=== PATIENT | male | born 1960 | race Caucasian/White ===

== ENCOUNTER → 2020-06-21 09:45 | Outpatient (CLI) | payer OTHER, SELFPAY ==
--- NOTE | ~2020-06-21 | XR_ITS ---
XR cervical spine 4-5V DATE: 06/21/2020 10:44 INDICATION: Neck pain, degenerative change of the neck. TECHNIQUE: Standing AP, open-mouth, lateral, swimmer views COMPARISON: 01/29/2019 cervical spine FINDINGS: There is straightening of the cervical spine. C1 and C2 are normally aligned and the odontoid process is intact. There is approximately 2 mm anterolisthesis at C3-4. There is prominent anterior spurring at C4-5 but preservation of the disc space. Status post interbody spinal fusion at C5-6 and C6-7. No fracture or locked facet, dislocation or prevertebral soft tissue swelling. IMPRESSION: Straightening 2 mm anterolisthesis at C3-4 Status post interbody spinal fusion at C5-6 and C6-7 Reviewed, dictated and finalized at location A.
--- NOTE | ~2020-06-21 | XR_ITS ---
XR lumbar spine 2-3V DATE: 06/21/2020 10:45 INDICATION: Low back pain TECHNIQUE: AP, lateral, coned lateral lumbosacral views COMPARISON: 08/15/2019 MRI lumbar spine 01/29/2019 lumbar spine FINDINGS: Again noted is posterior and interbody spinal fusion at L4-L5 and L5-S1. There is severe degenerative disc disease at L1-2. There is severe degenerative disc disease and mild retrolisthesis at L3-4. No fracture or bone destruction is evident. The included lower thoracic and lumbar pedicles appear in tact. The sacroiliac joints are intact. IMPRESSION: Status post anterior and posterior spinal fusion at L4-S1 Severe degenerative disc disease at L1-2 and L3-4; mild retrolisthesis at L3-4 Little interval change since 01/29/2019 Reviewed, dictated and finalized at location A.
== END ==
DX: M54.5 Low back pain (principal); Z98.1 Arthrodesis status; M51.36 Other intervertebral disc degeneration, lumbar region; M43.16 Spondylolisthesis, lumbar region; M53.82 Other specified dorsopathies, cervical region; M43.12 Spondylolisthesis, cervical region
CPT/HCPCS: 72050; 72100

== ENCOUNTER 2020-09-14 10:42 | Outpatient (CLI) | payer OTHER, SELFPAY ==
--- NOTE | 2020-09-14 11:30 | NEURO_ITS ---
Impression: # Complains of numbness and pain in left hand. # Moderate left Carpal Tunnel Syndrome. # No ulnar neuropathy. # Normal needle/EMG exam. Nerve Conduction Studies Anti Sensory Summary Table Stim Site NR Peak (ms) P-T Amp (?V) Site1 Site2 Delta-P (ms) Dist (cm) Som (m/s) Left Median Anti Sensory (2-3nd Digit) Wrist 4.9 9.0 Wrist 2-3nd Digit 4.9 14.0 29 Wrist 5.4 4.7 Wrist 2-3nd Digit 4.9 14.0 29 Left Radial Anti Sensory (Base 1st Digit) Wrist 1.7 15.6 Wrist Base 1st Digit 1.7 0.0 Left Ulnar Anti Sensory (5th Digit) Wrist 2.5 20.8 Wrist 5th Digit 2.5 14.0 56 Motor Summary Table Stim Site NR Onset (ms) O-P Amp (mV) Site1 Site2 Delta-0 (ms) Dist (cm) Som (m/s) Left Median Motor (Abd Poll Brev) Wrist 5.5 1.9 Elbow Wrist 5.1 29.0 57 Elbow 10.6 1.6 Left Ulnar Motor (Abd Dig Minimi) Wrist 2.7 6.4 A Elbow Wrist 5.0 31.0 62 A Elbow 7.7 5.6 F Wave Studies NR F-Lat (ms) L-R F-Lat (ms) Left Median (Mrkrs) (Abd Poll Brev) 31.78 Left Ulnar (Mrkrs) (Abd Dig Min) 28.71 EMG Side Muscle Nerve Root Ins Act Fibs Amp Dur Recrt Comment Left 1stDorInt Ulnar C8-T1 Nml Nml Nml Nml Nml Left Ext Indicis Radial (Post Int) C7-8 Nml Nml Nml Nml Nml Left Ext Digitorum Radial (Post Int) C7-8 Nml Nml Nml Nml Nml Left BrachioRad Radial C5-6 Nml Nml Nml Nml Nml Left PronatorTeres Median C6-7 Nml Nml Nml Nml Nml Left Abd Poll Brev Median C8-T1 Nml Nml Nml Nml Nml MTDD
== END 2020-09-14 10:43 | disposition home or self-care (01) ==
PROVIDERS: PCP Family Medicine
DX: G56.02 Carpal tunnel syndrome, left upper limb (principal)
CPT/HCPCS: 95886; 95909

== ENCOUNTER 2021-11-01 13:03 | Outpatient (CLI) | payer OTHER, SELFPAY ==
--- NOTE | 2021-11-01 13:28 | ECG_ITS ---
Measurements Intervals [place] Rate: 64 P: 16 MN: 196 QRS: 12 QRSD: 83 T: 36 QT: 374 QTc: 388 Interpretive Statements SINUS RHYTHM NORMAL ECG NO PREVIOUS ECG AVAILABLE FOR COMPARISON Electronically Signed On 11-01-2021 14:24:15 CHANCERY CLERK by Ajith Quiroz M.D.
[2021-11-01 14:21] LABS: Anion Gap 6 mmol/L (8-16); Blood Urea Nitrogen 29 mg/dL (9-20); Calcium 8.7 mg/dL (8.4-10.2); Carbon Dioxide 28 mmol/L (22-30); Chloride 104 mmol/L (98-107); Estimated Glomerular Filt Rate > 60; Glucose 86 mg/dL (65-110); Potassium 4.4 mmol/L (3.4-5.0); Sodium 138 mmol/L (137-145)
== END 2021-11-01 13:04 | disposition home or self-care (01) ==
LOC: ANHLAB 13:08
PROVIDERS: PCP Family Medicine; Visit Provider Physician Assistant Medical
DX: M25.561 Pain in right knee (principal); I10 Essential (primary) hypertension
CPT/HCPCS: 36415; 80048; 84443; 93005

== ENCOUNTER → 2021-11-23 12:22 | Outpatient (CLI) | payer OTHER, SELFPAY ==
--- NOTE | ~2021-11-23 | MR_ITS ---
EXAMINATION: MR orbits face neck wo/w con EXAM DATE: 11/23/2021 13:14 INDICATION: Choroidal folds TECHNIQUE: Magnetic resonance imaging (MRI) of the brain/orbits stem obtained without contrast. Whole brain Sagittal T1, axial diffusion, gradient echo (T2*), T1, T2, FLAIR sequences obtained. Dedicated orbital sequences obtained with smaller field of view, including axial T1, axial T2 fat saturation, coronal T1, coronal T2 fat saturation Patient was then injected with 20 cc intravenous Multihance con trast. Old brain Axial and coronal postcontrast T1 weighted sequences obtained. Dedicated orbital axi al and coronal T1 fat saturation postcontrast sequences. FINDINGS: Incidental incompletely imaged mass in the left parotid superficial lobe measuring 1.2 cm x 1.6. Could be pleomorphic adenoma, parotid malignancy or less likely intraparotid lymph node. Recomm end ENT consult for further management, histologic correlation. The globes, extraocular muscles, optic nerves, lacrimal glands are unremarkable. Retrobulbar fat is c lear. Left-sided cataract surgery. There are no areas of restricted diffusion to suggest acute infarc tion. There is no acute hemorrhage seen on the T2*, a hemosiderin sensitive sequence. No intraparen chymal brain mass. The ventricles are normal in size. There are no extra-axial collections. Flow vo ids are seen in the cerebral arteries on the T2-weighted sequences consistent with their expected pat ency. Soft tissue is unremarkable. IMPRESSION: 1. Incidental left parotid mass; ENT consult, histologic correlation. 2. Unremarkable orbits. Reviewed, dictated and finalized at location B.
== END ==
PROVIDERS: PCP Family Medicine
DX: H31.8 Other specified disorders of choroid (principal); D37.030 Neoplasm of uncertain behavior of the parotid salivary glands
CPT/HCPCS: 70543; A9577

== ENCOUNTER 2021-12-14 12:48 | Outpatient (CLI) | payer OTHER, SELFPAY ==
--- NOTE | ~2021-12-14 | XR_ITS ---
EXAMINATION: XR chest 2V DATE: 12/14/2021 13:05 INDICATION: Dyspnea. Wheezing. TECHNIQUE: Frontal and lateral views of the chest were obtained. COMPARISON: Chest 2 views 01/29/2019 FINDINGS: The chest demonstrates clear lungs without pneumonia, pleural effusion, or pneumothorax. Th e heart size is normal. There are changes of anterior fusion procedure in cervical spine. IMPRESSION: 1. No acute cardiopulmonary disease. Reviewed, dictated and finalized at location B.
== END 2021-12-14 12:49 | disposition home or self-care (01) ==
LOC: ANHIMG 12:51
PROVIDERS: PCP Family Medicine; Visit Provider Family Medicine
DX: R06.00 Dyspnea, unspecified (principal)
CPT/HCPCS: 71046

== ENCOUNTER 2022-01-03 11:09 | Outpatient (CLI) | payer OTHER, SELFPAY ==
--- NOTE | ~2022-01-03 | US_ITS ---
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 COMPARISON: MRI dated 11/23/2021 FINDINGS: 2.0 x 1.0 x 1.2 cm solid hypoechoic mass within the posterior left parotid gland which corresponds in size and location to the enhancing lesion identified on prior MRI. IMPRESSION: 1. Redemonstration of a 2.0 x 1.0 x 1.2 cm solid left parotid nodule which could be either benign or malignant. The nodule was subsequently biopsied. See separate report for further detail regarding the biopsy and follow-up with pathology results. Reviewed, dictated and finalized at location A. IMPRESSION: 1. Redemonstration of a 2.0 x 1.0 x 1.2 cm solid left parotid nodule which coul d be either benign or malignant. The nodule was subsequently biopsied. See sepa rate report for further detail regarding the biopsy and follow-up with patholog y results.
--- NOTE | ~2022-01-03 | US_ITS ---
EXAMINATION: US FNA w image guidance DATE: 01/03/2022 12:32 INDICATION: Parotid neoplasm of uncertain behavior TECHNIQUE: A time-out was performed to verify the patient's name, date of , and procedure to be performed . The procedure and its benefits and risks were discussed with the patient. Risks specifically discus sed included bleeding and infection. The patient understood the risks and agreed to proceed. The neck was prepped and draped in the usual sterile manner. 3 mL 1% lidocaine was used for local anesthesia . 6 passes were made with a 25G needle into the lesion. Appropriate needle location was documented with continuous sonographic guidance. The specimens were passed to the medical lab technologist in the room. A sterile bandage was applied. There were no immediate complications. FINDINGS: Grayscale ultrasound images demonstrate biopsy needles advanced into the previously noted 1.9 cm hypo echoic left parotid mass of concern. IMPRESSION: 1. Successful ultrasound-guided fine needle aspiration of an indeterminate 1.9 cm left parotid mass. Reviewed, dictated and finalized at location A.
== END 2022-01-03 11:10 | disposition home or self-care (01) ==
PROVIDERS: PCP Family Medicine; Visit Provider Otolaryngology
DX: D37.030 Neoplasm of uncertain behavior of the parotid salivary glands (principal)
CPT/HCPCS: 10005; 76536; 88173; 88305

== ENCOUNTER 2022-01-10 07:10 | Outpatient (CLI) | payer OTHER, SELFPAY ==
--- NOTE | 2022-01-10 07:45 | ECHO_ITS ---
Patient Info Name: Fabio Lund Age: 61 years : 1960 Gender: Male Ht: 68 in Wt: 250 lbs BSA: 2.38 m2 HR: 63 bpm BP: 161 / 115 mmHg Technical Quality: Fair Exam Date: 01/10/2022 8:08 AM Exam Location: [facility] Patient Status: Outpatient Admit Date: 01/10/2022 Staff Ordering Physician: Pool Young MD Brush Sander: Misa Bolanos RDCS Attending Provider: Pool Young MD Referring Physician: Hector SANCHEZ; Exam Type: CA echo doppler color flow Study Info Indications R06.00 - Dyspnea, unspecified Complete two-dimensional, color flow and Doppler transthoracic echocardiogram is performed. Summary 1. Complete two-dimensional, color flow and Doppler transthoracic echocardiogram is performed. 2. Left ventricular chamber dimension is normal. 3. Left ventricular systolic function is normal, estimated at 60-65%. 4. There is mildly increased left ventricular wall thickness. 5. The left ventricular diastolic function is grade I diastolic dysfunction. 6. E/e' 9 is minimally elevated. 7. Global longitudinal strain is abnormal at -15.7%. 8. There is mild aortic valve sclerosis. 9. No pulmonary hypertension, estimated pulmonary arterial systolic pressure is 19 mmHg. Left Ventricle E/e' 9 is minimally elevated. Global longitudinal strain is abnormal at -15.7%. Left ventricular chamber dimension is normal. Left ventricular systolic function is normal, estimated at 60-65%. There is mildly increased left ventricular wall thickness. The left ventricular diastolic function is grade I diastolic dysfunction. Right Ventricle Right ventricular chamber dimension is normal. Right ventricular systolic function is normal. Left Atria Left atrial chamber dimension is normal. Right Atria Right atrial chamber dimension is normal. Aortic Valve The aortic valve is trileaflet. There is mild aortic valve sclerosis. There is no aortic valve stenosis. There is no aortic valve regurgitation. Pulmonic Valve There is no pulmonic regurgitation. Mitral Valve There is no mitral valve stenosis. There is no mitral valve regurgitation. Tricuspid Valve There is no tricuspid valve regurgitation. No pulmonary hypertension, estimated pulmonary arterial systolic pressure is 19 mmHg. Pericardium/Pleural There is no pericardial effusion. Inferior Vena Cava Normal inferior vena cava with >50% collapse upon inspiration consistent with normal right atrial pressure, 5 mmHg. Aorta The aortic root size at the sinus of Valsalva is normal. Left Ventricular Outflow Tract Name Value Normal LVOT 2D LVOT Diameter 2.0 cm LVOT Doppler LVOT Peak Gradient 6 mmHg LVOT Mean Gradient 4 mmHg LVOT VTI 28 cm LVOT VTI/AV VTI Ratio 1.1 LVOT Stroke Volume 85 ml LVOT CO 5.4 l/min LVOT CI 2.3 l/min/m2 Pulmonic Valve Na
--- NOTE | 2022-01-10 07:46 | EST_ITS ---
Patient Info Name: Fabio Lund Age: 61 years : 1960 Gender: Male Ht: 68 in Wt: 250 lbs BSA: 2.38 m2 HR: 65 bpm BP: 145 / 108 mmHg Heart Rhythm: Sinus Rhythm Exam Date: 01/10/2022 2:44 PM Patient Status: Outpatient Admit Date: 01/10/2022 Staff Ordering Physician: Pool Young MD Attending Provider: Pool Young MD Exercise Technologist: Bonny Ty CT Exercise Physician: Bay Herring DO Exam Type: CA stress test treadmill Study Info Indications I10 - Essential (primary) hypertension R06.00 - Dyspnea, unspecified A treadmill exercise stress test was performed. Summary 1. 1. Inconclusive Jason exercise stress test for ischemic ST changes by ECG criteria as he only achieved 58% MPHR for age group at 94 bpm and limited by dyspnea and leg pain. He did take Metoprolol the morning of the test. 2. 2. Reduced functional capacity, achieving 6 METs of workload. 3. 3. Baseline hypertension with hypertensive response to exercise. 4. 4. No imaging with stress testing. 5. 5. Patient informed of the above results. Rest HR: 65 bpm Peak HR: 94 bpm Rest Sys BP: 145 mmHg Peak Sys BP: 220 mmHg Max Pred HR: 161 bpm % Max Pred HR: 58 % Target HR: 137 bpm Max RPP: 20,680 bpm*mmHg Termination Reason: Dyspnea Cardiac Symptoms: Shortness of breath, Leg pain Total Time: 4 min : 25 sec Rest Arevalo BP: 108 mmHg Peak Arevalo BP: 113 mmHg Resting ECG Sinus rhythm. Stress ECG No ST changes. Arrhythmias None. Report Signatures
--- NOTE | 2022-01-10 08:01 | ECG_ITS ---
Measurements Intervals [place] Rate: 62 P: 30 OR: 199 QRS: 44 QRSD: 86 T: 38 QT: 390 QTc: 397 Interpretive Statements SINUS RHYTHM DELAYED PRECORDIAL R/S TRANSITION BASELINE ARTIFACT- I, II, III, AVL, AVF BORDERLINE ECG Electronically Signed On 01-10-2022 9:25:11 CDT by Bay Herring D.O.
--- NOTE | 2022-01-11 11:26 | WPDPFTINT ---
PFT Procedure Performed PFT Procedure Performed Spirometry with Pre/Post Bronchodilator Plethysmography (Lung Vol) Diffusing Cap (DLCO) Flow Vol Loop PFT Interpretation Lung volumes were measured with the body plethysmography method. The diminished ERV is related to obesity. The remaining lung volumes are unremarkable. Spirometry showed normal expiratory flow rates and a normal FEV1 to FVC ratio 78%. Following administration of a bronchodilator, there was no significant change in the expiratory flow rates. Lung diffusion capacity is within the normal range at 107% predicted. The flow volume loop is unremarkable. Impression: Spirometry, lung volumes, and lung diffusion capacity all within the normal range.
== END 2022-01-10 07:11 | disposition home or self-care (01) ==
LOC: ANHCARD 07:11
PROVIDERS: PCP Family Medicine; Visit Provider Family Medicine
DX: R06.00 Dyspnea, unspecified (principal); I10 Essential (primary) hypertension; E78.2 Mixed hyperlipidemia; I70.0 Atherosclerosis of aorta
CPT/HCPCS: 93005; 93017; 93306; 94060; 94726; 94729

== ENCOUNTER 2022-01-31 08:04 | Outpatient (CLI) | payer OTHER, SELFPAY ==
--- NOTE | ~2022-01-31 | US_ITS ---
US arterial ankle brachial ind INDICATION: Right leg pain TECHNIQUE: Segmental pressures and plethysmographic and Doppler waveforms of the brachial and lower e xtremity arteries were obtained. COMPARISON: None. FINDINGS: Right and left brachial artery pressures of 169 mm Hg and 166 mm Hg, respectively, are concordant (no rmal difference <= 30 mmHg). The right ankle-brachial index (CHIP) is 1.02 (normal >= 0.9-1.0). The right great toe-brachial index (TBI) is 0.63 (normal >= 0.60). The left CHIP is 1.05. The left TBI is 0.42. IMPRESSION: 1. Left toe brachial index below normal measuring 0.42, consistent with mild peripheral arterial dise ase. 2: Normal right ankle and toe brachial indices. Reviewed, dictated and finalized at location B. IMPRESSION: 1. Left toe brachial index below normal measuring 0.42, consistent with mild pe ripheral arterial disease. 2: Normal right ankle and toe brachial indices.
== END 2022-01-31 08:05 | disposition home or self-care (01) ==
PROVIDERS: PCP Family Medicine; Visit Provider Family Medicine
DX: M79.604 Pain in right leg (principal); R94.39 Abnormal result of other cardiovascular function study
CPT/HCPCS: 93922

== ENCOUNTER 2023-01-02 10:11 | Outpatient (CLI) | payer OTHER, SELFPAY ==
--- NOTE | 2023-01-02 15:00 | NEURO_ITS ---
IMPRESSION: Patient reports a history of pain in the left hand. # Moderate left Carpal Tunnel Syndrome. # Mild right Carpal Tunnel Syndrome. # Normal EMG # Clinical correlation recommended Nerve Conduction Studies Anti Sensory Summary Table Stim Site NR Peak (ms) P-T Amp (?V) Site1 Site2 Delta-P (ms) Dist (cm) Som (m/s) Left Median Anti Sensory (2-3nd Digit) Wrist 7.9 7.8 Wrist 2-3nd Digit 7.9 14.0 18 Wrist 8.2 2.8 Wrist 2-3nd Digit 7.9 14.0 18 Right Median Anti Sensory (2-3nd Digit) Wrist 4.1 11.3 Wrist 2-3nd Digit 4.1 14.0 34 Wrist#2 4.5 11.6 Wrist 2-3nd Digit 4.1 14.0 34 Left Radial Anti Sensory (Base 1st Digit) Wrist 1.4 25.3 Wrist Base 1st Digit 1.4 0.0 Right Radial Anti Sensory (Base 1st Digit) Wrist 1.4 16.6 Wrist Base 1st Digit 1.4 0.0 Left Ulnar Anti Sensory (5th Digit) Wrist 2.8 17.7 Wrist 5th Digit 2.8 14.0 50 Right Ulnar Anti Sensory (5th Digit) Wrist 2.5 22.0 Wrist 5th Digit 2.5 14.0 56 Motor Summary Table Stim Site NR Onset (ms) O-P Amp (mV) Site1 Site2 Delta-0 (ms) Dist (cm) Som (m/s) Left Median Motor (Abd Poll Brev) Wrist 7.6 4.9 Elbow Wrist 4.9 24.0 49 Elbow 12.5 4.1 Right Median Motor (Abd Poll Brev) Wrist 4.1 6.1 Elbow Wrist 4.3 23.0 53 Elbow 8.4 4.1 Left Ulnar Motor (Abd Dig Minimi) Wrist 2.2 9.8 A Elbow Wrist 5.9 32.0 54 A Elbow 8.1 7.7 B Elbow Wrist 4.2 23.0 55 B Elbow 6.4 8.1 Right Ulnar Motor (Abd Dig Minimi) Wrist 2.3 9.4 A Elbow Wrist 5.8 31.0 53 A Elbow 8.1 8.1 B Elbow Wrist B Elbow F Wave Studies NR F-Lat (ms) L-R F-Lat (ms) Left Median (Mrkrs) (Abd Poll Brev) 36.67 6.92 Right Median (Mrkrs) (Abd Poll Brev) 29.75 6.92 Left Ulnar (Mrkrs) (Abd Dig Min) 31.41 1.25 Right Ulnar (Mrkrs) (Abd Dig Min) 30.16 1.25 EMG Side Muscle Nerve Root Ins Act Fibs Amp Dur Recrt Comment Right 1stDorInt Ulnar C8-T1 Nml Nml Nml Nml Nml Right Ext Indicis Radial (Post Int) C7-8 Nml Nml Nml Nml Nml Right Ext Digitorum Radial (Post Int) C7-8 Nml Nml Nml Nml Nml Right BrachioRad Radial C5-6 Nml Nml Nml Nml Nml Right PronatorTeres Median C6-7 Nml Nml Nml Nml Nml Right Abd Poll Brev Median C8-T1 Nml Nml Nml Nml Nml Left 1stDorInt Ulnar C8-T1 Nml Nml Nml Nml Nml Left Ext Indicis Radial (Post Int) C7-8 Nml Nml Nml Nml Nml Left Ext Digitorum Radial (Post Int) C7-8 Nml Nml Nml Nml Nml Left BrachioRad Radial C5-6 Nml Nml Nml Nml Nml Left PronatorTeres Median C6-7 Nml Nml Nml Nml Nml Left Abd Poll Brev Median C8-T1 Nml Nml Nml Nml Nml MTDD
== END 2023-01-02 10:12 | disposition home or self-care (01) ==
LOC: ANHNEURO 10:11
PROVIDERS: PCP Family Medicine; Visit Provider Nurse Practitioner Family
DX: G56.03 Carpal tunnel syndrome, bilateral upper limbs (principal)
CPT/HCPCS: 95886; 95911

== ENCOUNTER 2023-03-12 07:12 | Outpatient (CLI) | payer OTHER, SELFPAY ==
[2023-03-12 07:38] LABS: Hematocrit 43.6 % (42.0-52.0); Hemoglobin 14.2 g/dL (14.0-18.0); Mean Corpuscular HGB Conc 32.6 g/dl (32-36); Mean Corpuscular Hemoglobin 31.1 pg (26-34); Mean Corpuscular Volume 95.6 fl (80-100); Mean Platelet Volume 10.5 fl (7.4-10.4); Platelet Count Result 190 k/mm3 (150-375); Red Blood Count 4.56 M/mm3 (4.6-6.20); Red Cell Distribution Width 13.3 % (11.5-14.5); White Blood Count 7.5 K/mm3 (4.5-10.0)
[2023-03-12 07:52] LABS: Alanine Aminotransferase 39 U/L (6-50); Albumin Level 4.3 g/dL (3.5-5.1); Alkaline Phosphatase 98 U/L (38-126); Anion Gap 4 mmol/L (8-16); Aspartate Amino Transferase 38 U/L (17-59); Bilirubin,Total 0.6 mg/dL (0.2-1.3); Blood Urea Nitrogen 21 mg/dL (9-20); Calcium 8.8 mg/dL (8.4-10.2); Carbon Dioxide 28 mmol/L (22-30); Chloride 107 mmol/L (98-107); Cholesterol 153 mg/dL (0-200); Estimated Glomerular Filt Rate > 60; Glucose 113 mg/dL (65-110); HDL Direct 50 mg/dL; Sodium 139 mmol/L (137-145); Triglycerides 121 mg/dL (<150)
[2023-03-12 08:03] LABS: LDL Cholesterol Direct 67 mg/dL
== END 2023-03-12 07:13 | disposition home or self-care (01) ==
LOC: ANHLAB 07:13
PROVIDERS: PCP Family Medicine; Visit Provider Nurse Practitioner Family
DX: I10 Essential (primary) hypertension (principal); Z13.29 Encounter for screening for other suspected endocrine disorder; Z12.5 Encounter for screening for malignant neoplasm of prostate
CPT/HCPCS: 36415; 80053; 80061; 84153; 84443; 85027; G0103

== ENCOUNTER 2023-07-14 06:39 | Outpatient (CLI) | payer OTHER, SELFPAY ==
--- NOTE | ~2023-07-14 | XR_ITS ---
EXAMINATION: XR shoulder LT min 2V DATE: 07/14/2023 08:14 INDICATION: Left shoulder instability TECHNIQUE: AP internally and externally rotated, AP oblique externally rotated and transscapular Y vi ews of the left shoulder were obtained. COMPARISON: None FINDINGS: Normal alignment. No fracture.Mild glenohumeral and acromioclavicular osteoarthritis. Calcification along the posterior inferior rim of the glenoid which could represent either labral chondrocalcinosis or small heterotopic ossicle. Small subacromial spur. Soft tissues are unremarkable. The visualized portions of the left lung are clear. IMPRESSION: Mild left glenohumeral and acromioclavicular osteoarthritis with chondrocalcinosis versus small heter otopic ossicle along the posterior inferior glenoid labrum. Reviewed, dictated and finalized at location A. O STRINGER IMPRESSION: Mild left glenohumeral and acromioclavicular osteoarthritis with chondrocalcino sis versus small heterotopic ossicle along the posterior inferior glenoid labru m.
--- NOTE | ~2023-07-14 | XR_ITS ---
EXAMINATION: XR shoulder RT min 2V DATE: 07/14/2023 08:14 INDICATION: Right shoulder instability TECHNIQUE: AP internally and externally rotated, AP oblique externally rotated and transscapular Y vi ews of the right shoulder were obtained. COMPARISON: 06/17/2019 FINDINGS: Normal alignment. No fracture.Mild glenohumeral and acromioclavicular osteoarthritis. Small subacrom ial spur. Soft tissues are unremarkable. Visualized portion of the right lung is clear. Bone graft ca ges for anterior spinal fusion in lower cervical spine likely at C5-C6 and C6-C7. IMPRESSION: Mild right glenohumeral and acromioclavicular osteoarthritis and small subacromial spur. Reviewed, dictated and finalized at location A. ER SESSIONS DIRECTOR IMPRESSION: Mild right glenohumeral and acromioclavicular osteoarthritis and small subacrom ial spur.
--- NOTE | ~2023-07-14 | XR_ITS ---
XR knee LT min 4V 07/14/2023 08:14 Indication: Left knee pain Procedure: 4 Views left knee Comparison: No prior studies for comparison. Findings: Moderate tricompartment osteoarthritis, most advanced medial compartment. No joint effusion . No fracture or traumatic malalignment. No foreign bodies. Impression: 1: Moderate tricompartment osteoarthritis of the left knee. Reviewed, dictated and finalized at location B. LION CHIEF Impression: 1: Moderate tricompartment osteoarthritis of the left knee.
--- NOTE | ~2023-07-14 | XR_ITS ---
XR knee RT min 4V 07/14/2023 08:14 Indication: Right knee pain Procedure: 4 views right knee Comparison: No prior studies for comparison. Findings: There is tricompartment osteoarthritis, most advanced in the medial compartment. No fractur e or traumatic malalignment. No significant joint effusion. There is atherosclerosis. Impression: 1: Moderate-severe tricompartment osteoarthritis. Reviewed, dictated and finalized at location B. A/C TECHNICIAN Impression: 1: Moderate-severe tricompartment osteoarthritis.
--- NOTE | ~2023-07-14 | MR_ITS ---
EXAMINATION: MR lumbar spine wo con DATE: 07/14/2023 07:44 INDICATION: Lumbar radiculopathy. TECHNIQUE: Magnetic resonance imaging (MRI) of the lumbar spine was performed without intravenous con trast. Sequences included sagittal T2-weighted FSE, sagittal T2-weighted FS FSE, sagittal T1-weighted FSE, and axial T2-weighted FSE. COMPARISON: Lumbar spine MRI 08/15/2019 FINDINGS: There is 3 mm retrolisthesis of L3 on L4 and 3 mm anterolisthesis of L5 on S1. Vertebral aysha dy heights are normal. There is severely decreased disc height at L1-L2, L2-L3, and L3-L4. There are changes of anterior fusion procedures at L4-L5 and L5-S1 with interbody devices. There are changes of posterior fusion procedure from L4 to S1. The distal spinal cord signal intensity is normal. The con us medullaris is at T12-L1. Epidural lipomatosis is noted. The following disc levels are specifically discussed: L1-L2: The disc is mildly bulging. There is moderate bilateral facet joint osteoarthritis. There is m ild lateral neural foraminal stenosis. There is no central canal stenosis. L2-L3: The disc is bulging and has an annular fissure. There is moderate bilateral facet joint osteoa rthritis. There is moderate right and mild left neural foraminal stenosis. There is moderate central canal stenosis. L3-L4: The disc is bulging and has an annular fissure. There is severe bilateral facet joint osteoart hritis. There is moderate bilateral neural foraminal stenosis. There is mild central canal stenosis w ith posterior decompression. L4-L5: There is moderate right and mild left facet joint hypertrophy. There is mild bilateral neural foraminal stenosis. There is no central canal stenosis. There is posterior decompression. L5-S1: There is no facet joint hypertrophy. There is no neural foraminal stenosis. There is no centra l canal stenosis. There is posterior decompression. IMPRESSION: 1. Severe lumbar spondylosis, worsened from 08/15/2019. 2. Anterior and posterior fusion procedures from L4 to S1. Reviewed, dictated and finalized at location E. RONMENTAL SUSTAINABILITY MANAGER
--- NOTE | ~2023-07-14 | MR_ITS ---
EXAMINATION: MR cervical spine wo con DATE: 07/14/2023 07:44 INDICATION: Cervical radiculopathy. TECHNIQUE: Magnetic resonance imaging (MRI) of the cervical spine was performed without intravenous c ontrast. COMPARISON: Cervical spine MRI 02/17/2004 FINDINGS: There is kyphosis of cervical spine. There is 2 mm anterolisthesis of C7 on T1. There is mi ld chronic anterior wedging of T1 and T2 vertebral bodies. There are changes of anterior fusion proce dure at C5-C6 and C6-C7 with interbody devices. The spinal cord signal intensity is normal. The follo wing disc levels are specifically discussed: C2-C3: The disc does not extend beyond the endplate margin. There is moderate right and mild left unc overtebral joint osteoarthritis. There is severe bilateral facet joint osteoarthritis. There is mild bilateral neural foraminal stenosis. There is no central canal stenosis. C3-C4: The disc does not extend beyond the endplate margins. There is moderate bilateral uncovertebra l joint osteoarthritis. There is mild right and severe left facet joint osteoarthritis. There is mild right and moderate left neural foraminal stenosis. There is mild central canal stenosis. C4-C5: The disc does not extend beyond the endplate margin. There is moderate bilateral uncovertebral joint hypertrophy. There is severe right and mild left facet joint osteoarthritis. There is moderate right and mild left neural foraminal stenosis. There is mild central canal stenosis. C5-C6: There is mild bilateral uncovertebral joint hypertrophy. There is no facet joint osteoarthriti s. There is mild left neural foraminal stenosis. There is mild central canal stenosis with ventral in dentation of the spinal cord. C6-C7: There is moderate bilateral uncovertebral joint hypertrophy. There is no facet joint osteoarth ritis. There is mild bilateral neural foraminal stenosis. There is mild central canal stenosis. C7-T1: The disc does not extend beyond the endplate margin. There is severe bilateral uncovertebral j oint osteoarthritis. There is mild bilateral facet joint osteoarthritis. There is no neural foraminal stenosis. There is no central canal stenosis. IMPRESSION: 1. Anterior fusion procedures at C5-C6 and C6-C7. 2. Moderate cervical spondylosis. Reviewed, dictated and finalized at location E. T PUMPER
--- NOTE | ~2023-07-14 | XR_ITS ---
XR hip BI 2V w AP pelvis 07/14/2023 08:14 Indication: Instability. Pelvic pain. Procedure: AP pelvis and 2 views each hip Comparison: 01/29/2019 Findings: Mild osteoarthritis of the hips. Pelvic rings are intact. Sacral foramen are symmetric. The re is atherosclerosis. There are surgical changes consistent with fusion at L4 S1. Impression: 1: Mild osteoarthritis of the hips. Reviewed, dictated and finalized at location B. [employer] Impression: 1: Mild osteoarthritis of the hips.
== END 2023-07-14 06:40 | disposition home or self-care (01) ==
PROVIDERS: PCP Family Medicine; Visit Provider Physical Medicine & Rehabilitation Pain Medicine
DX: M16.0 Bilateral primary osteoarthritis of hip (principal); M17.0 Bilateral primary osteoarthritis of knee; M19.012 Primary osteoarthritis, left shoulder; M19.011 Primary osteoarthritis, right shoulder; M47.26 Other spondylosis with radiculopathy, lumbar region; Z98.1 Arthrodesis status
CPT/HCPCS: 72141; 72148; 73030; 73521; 73564

== ENCOUNTER 2023-12-30 00:10 | Day surgery (SDC) | payer OTHER, SELFPAY ==
[2023-12-18 09:58] VITALS: BMI 36.5
[2023-12-30 09:19] VITALS: BP 120/80; PULSE 67; RESP 18; TEMP 36.1; O2SAT 97
--- NOTE | 2023-12-30 09:31 | WPDANESEPPF ---
Anes - Initial Pre Proc Eval Procedure: Operation Date: 12/30/23 10:30 Proposed Procedures p Colonoscopy - Maxi Bautista MD Date/Time: 12/30/23 09:31 Surgeon: Maxi Bautista MD Pre Op Diagnosis: Benign neoplasm of colon unspecified Patient Data Age: 63 Gender: M Height: 1.73 m Weight: 113.7 kg Last Vital Signs Temp 97 F L 12/30/23 09:19 Pulse 67 12/30/23 09:19 Resp 18 12/30/23 09:19 BP 120/80 12/30/23 09:19 Pulse Ox 97 12/30/23 09:19 O2 Del Method Room Air 12/30/23 09:19 Allergies Allergy/AdvReac Type Severity Reaction Status Date / Time Penicillins Allergy Mild Hives Verified 12/30/23 09:17 Home Medications Medication Instructions Recorded Confirmed Type metoprolol succinate 100 mg 100 mg PO DAILY #180 tabs 07/08/23 12/18/23 Rx tablet,extended release 24 hr paroxetine HCl 40 mg tablet See Rx Instructions .Route 07/28/23 12/18/23 Rx .COMPLEX #90 tabs ropinirole 0.5 mg tablet See Rx Instructions .Route 07/28/23 12/18/23 Rx .COMPLEX #270 tabs fluticasone propionate 50 See Rx Instructions .Route 09/16/23 12/18/23 Rx mcg/actuation nasal .COMPLEX #48 grams spray,suspension benazepril 20 mg tablet See Rx Instructions .Route 11/27/23 12/18/23 Rx .COMPLEX #180 tabs atorvastatin 40 mg tablet 40 mg PO DAILY #90 tabs 12/10/23 12/18/23 Rx bupropion HCl 100 mg tablet,12 hr 100 mg PO BID #180 tabs 12/10/23 12/18/23 Rx sustained-release (Wellbutrin SR) hydrocodone 10 mg-acetaminophen 1 tablet PO Q6H PRN pain #120 tabs 12/11/23 12/18/23 Rx 325 mg tablet trazodone 50 mg tablet 50 mg PO QHS PRN insomnia #90 tabs 12/16/23 12/18/23 Rx amlodipine 10 mg tablet 10 mg PO DAILY 12/18/23 12/18/23 History gabapentin 600 mg tablet 600 mg PO BID 12/18/23 12/18/23 History Patient hx anesthesia problems: none Family hx anesthesia problems: none Results Review: All pre-operative results and documents have been reviewed as part of the pre-operative evaluation. 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 Surgical History Surgical History H/O Spinal surgery H/O wrist surgery Hx of cervical spine surgery Hx of colonoscopy Family History Family History Grandparent Cerebrovascular accident Diabetes mellitus Father Family history of cardiac disorder Family history of chronic obstructive pulmonary disease FH myocardial infarction male first degree age known Hyperlipidemia Mother Family history of Parkinson's disease Family history of congestive heart failure Sibling Tobacco abuse Other Family history of Alzheimer's disease Social History Social History Smoking status: Never smoker Second hand tobacco smoke exposure: Yes Alcohol intake: current Drinks per week: 12 Alcohol use details: 12 pack of beer Substance use: current Substance use type: marijuana Do You Feel Safe in your Home?: Yes Lack of Transportation: No Lack of Food: Never True Current Housing: I Have Housing Concerned About Future Housing: No Difficulty Paying Gas/Electric Bills: No Difficulty Paying for Meds: No Currently Unemployed: No Education: Trade/Vocational Certificate Difficulty w/ Childcare or Family Care: No Living arrangements: with family Additional living arrangements comments: Occupation/Education: occupation 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 Gender identity (if verbali
[2023-12-30] MEDS: LACTATED RINGERS 1,000 ML 150 ML IV CONT (09:38)
--- NOTE | 2023-12-30 09:40 | PM.HPGS ---
History of Present Illness History of Present Illness Consent: Risks, benefits, and alternatives have been discussed and questions answered. Patient agrees to proceed with procedure. 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 Surgical History Surgical History H/O Spinal surgery H/O wrist surgery Hx of cervical spine surgery Hx of colonoscopy Family History Family History Grandparent Cerebrovascular accident Diabetes mellitus Father Family history of cardiac disorder Family history of chronic obstructive pulmonary disease FH myocardial infarction male first degree age known Hyperlipidemia Mother Family history of Parkinson's disease Family history of congestive heart failure Sibling Tobacco abuse Other Family history of Alzheimer's disease Social History Social History Smoking status: Never smoker Second hand tobacco smoke exposure: Yes Alcohol intake: current Drinks per week: 12 Alcohol use details: 12 pack of beer Substance use: current Substance use type: marijuana Do You Feel Safe in your Home?: Yes Lack of Transportation: No Lack of Food: Never True Current Housing: I Have Housing Concerned About Future Housing: No Difficulty Paying Gas/Electric Bills: No Difficulty Paying for Meds: No Currently Unemployed: No Education: Trade/Vocational Certificate Difficulty w/ Childcare or Family Care: No Living arrangements: with family Additional living arrangements comments: Occupation/Education: occupation 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 Gender identity (if verbalized by the patient): Male Sexual Orientation (if Verbalized by the Patient): Straight or Heterosexual Spiritual care concerns: No Agree to blood products: Yes Meds Home Medications and Allergies Home Medications Medication Instructions Recorded Confirmed Type metoprolol succinate 100 mg 100 mg PO DAILY #180 tabs 07/08/23 12/18/23 Rx tablet,extended release 24 hr paroxetine HCl 40 mg tablet See Rx Instructions .Route 07/28/23 12/18/23 Rx .COMPLEX #90 tabs ropinirole 0.5 mg tablet See Rx Instructions .Route 07/28/23 12/18/23 Rx .COMPLEX #270 tabs fluticasone propionate 50 See Rx Instructions .Route 09/16/23 12/18/23 Rx mcg/actuation nasal .COMPLEX #48 grams spray,suspension benazepril 20 mg tablet See Rx Instructions .Route 11/27/23 12/18/23 Rx .COMPLEX #180 tabs atorvastatin 40 mg tablet 40 mg PO DAILY #90 tabs 12/10/23 12/18/23 Rx bupropion HCl 100 mg tablet,12 hr 100 mg PO BID #180 tabs 12/10/23 12/18/23 Rx sustained-release (Wellbutrin SR) hydrocodone 10 mg-acetaminophen 1 tablet PO Q6H PRN pain #120 tabs 12/11/23 12/18/23 Rx 325 mg tablet trazodone 50 mg tablet 50 mg PO QHS PRN insomnia #90 tabs 12/16/23 12/18/23 Rx amlodipine 10 mg tablet 10 mg PO DAILY 12/18/23 12/18/23 History gabapentin 600 mg tablet 600 mg PO BID 12/18/23 12/18/23 History Allergies Allergy/AdvReac Type Severity Reaction Status Date / Time Penicillins Allergy Mild Hives Verified 12/30/23 09:17 Vital Signs Vital Signs - 24 hr 12/30/23 09:19 Temperature 97 F L Pulse Rate 67 Respiratory R
[2023-12-30 10:07] VITALS: BP 100/71; PULSE 81; RESP 18; O2SAT 95
[2023-12-30 10:17] VITALS: BP 110/75; PULSE 70; RESP 18; O2SAT 95
[2023-12-30 10:21] VITALS: BP 115/79; PULSE 69; RESP 23; O2SAT 95
== END 2023-12-30 10:27 | disposition home or self-care (01) ==
PROVIDERS: PCP Family Medicine; Visit Provider Internal Medicine Gastroenterology
PROC: 0DJD8ZZ Inspection of Lower Intestinal Tract, Via Natural or Artificial Opening Endoscopic (ICD-10-PCS; CPT 45378; principal; 2023-12-30 10:30)
DX: Z12.11 Encounter for screening for malignant neoplasm of colon (principal); D12.2 Benign neoplasm of ascending colon; D12.3 Benign neoplasm of transverse colon; K57.30 Diverticulosis of large intestine without perforation or abscess without bleeding; K64.8 Other hemorrhoids; F12.90 Cannabis use, unspecified, uncomplicated; E66.9 Obesity, unspecified; Z68.38 Body mass index [BMI] 38.0-38.9, adult
CPT/HCPCS: 45385; 88305; J0461; J1596; J2704; J7120

== ENCOUNTER 2024-01-02 13:54 | Emergency (ER) | payer OTHER, SELFPAY ==
--- NOTE | ~2024-01-02 | XR_ITS ---
EXAMINATION: XR shoulder RT min 2V DATE: 01/02/2024 14:25 INDICATION: Right shoulder pain. Injury. TECHNIQUE: 4 views of right shoulder were obtained. COMPARISON: Right shoulder radiographs 07/14/2023 FINDINGS: Bone alignment is normal. No fracture. There is mild osteoarthritis of glenohumeral joint a nd acromioclavicular joint. There are changes of anterior fusion procedure in cervical spine. IMPRESSION: 1. Mild polyarticular osteoarthritis. Reviewed, dictated and finalized at location A.
[2024-01-02 14:04] VITALS: BP 150/112; PULSE 67; RESP 22; TEMP 36.7; O2SAT 96
--- NOTE | 2024-01-02 14:38 | ED.UPPEXIN ---
HPI - Extremity Injury (Upper) General Chief Complaint: Extremity Injury, Upper Stated Complaint: right shoulder injury Time Seen by Provider: 01/02/24 14:38 Source: patient Mode of arrival: ambulatory Limitations: no limitations History of Present Illness HPI narrative: Patient is a 63-year-old male who presents the ED with report of right shoulder pain. Patient reports he tripped and fell down his back steps and landed on his right shoulder. He did not hit his head or lose consciousness. He complains of pain to his right shoulder/right clavicular region. States he feels as though his right shoulder has been popping out of place. Denies numbness or tingling. Denies any other injuries. Denies elbow or wrist pain. Related Data Home Medications Medication Instructions Recorded Confirmed amlodipine 10 mg tablet 10 mg PO DAILY 12/18/23 12/18/23 gabapentin 600 mg tablet 600 mg PO BID 12/18/23 12/18/23 Allergies Allergy/AdvReac Type Severity Reaction Status Date / Time Penicillins Allergy Mild Hives Verified 01/02/24 14:06 Review of Systems Review of Systems: CONSTITUTIONAL: Denies fever, chills, or sweats. MUSCULOSKELETAL: See HPI. NEUROLOGIC: Denies headache, dizziness, numbness, or weakness. 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 Surgical History Surgical History H/O Spinal surgery H/O wrist surgery Hx of cervical spine surgery Hx of colonoscopy Family History Family History Grandparent Cerebrovascular accident Diabetes mellitus Father Family history of cardiac disorder Family history of chronic obstructive pulmonary disease FH myocardial infarction male first degree age known Hyperlipidemia Mother Family history of Parkinson's disease Family history of congestive heart failure Sibling Tobacco abuse Other Family history of Alzheimer's disease Social History Social History Smoking status: Never smoker Second hand tobacco smoke exposure: Yes Alcohol intake: current Drinks per week: 12 Alcohol use details: 12 pack of beer Substance use: current Substance use type: marijuana Do You Feel Safe in your Home?: Yes Lack of Transportation: No Lack of Food: Never True Current Housing: I Have Housing Concerned About Future Housing: No Difficulty Paying Gas/Electric Bills: No Difficulty Paying for Meds: No Currently Unemployed: No Education: Trade/Vocational Certificate Difficulty w/ Childcare or Family Care: No Living arrangements: with family Additional living arrangements comments: Occupation/Education: occupation 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 Gender identity (if verbalized by the patient): Male Sexual Orientation (if Verbalized by the Patient): Straight or Heterosexual Spiritual care concerns: No Agree to blood products: Yes Exam Narrative: GENERAL: Well appearing, Obese with BMI of 37.6, non-toxic, in no acute distress. HEAD: Normocephalic, atraumatic. RESPIRATORY: Airway patent, respirations nonlabored. CARDIOVASCULAR: Regular rate and rhythm without murmurs, rubs, or gallops. Radial pulses intact bilaterally. MUSCULOSKELETAL: Mild limited range of motion of right upper arm due to pain. Tenderness to palpation over anterior and posterior/superior shoulder, lateral clavicular region. Minimal contusion in thi
[2024-01-02] MEDS: KETOROLAC (*BKC) 60 MG/2 ML VIAL IM (14:50)
[2024-01-02] MEDS: HYDROcodone/acetaminophen (*CRX) 5-325 MG TABLET 1 TAB PO (14:50)
== END 2024-01-02 15:02 | disposition home or self-care (01) ==
LOC: ANHED 14:56
PROVIDERS: Emergency Provider Physician Assistant; PCP Family Medicine
DX: S46.911A Strain of unspecified muscle, fascia and tendon at shoulder and upper arm level, right arm, initial encounter (principal); M19.011 Primary osteoarthritis, right shoulder; W10.9XXA Fall (on) (from) unspecified stairs and steps, initial encounter
CPT/HCPCS: 73030; 96372; 99283; A4565; A9270; J1885